=== PATIENT | female | born 1940 | race Hispanic/Latino ===

== ENCOUNTER 2017-04-29 17:30 | Inpatient (IN) | payer OTHER, MEDICAID ==
[~2017-04-29] VITALS: Ht 162.6 cm; Wt 108.0 kg
[~2017-04-29 17:30] MED LIST: ADALAT10 MG ORAL; ATORVASTATIN CA40 MG ORAL; BENAZEPRIL HCL20 MG ORAL; CARVEDILOL3.125 MG ORAL; CATAPRES0.1 MG ORAL; COLACE250 MG ORAL; COUMADIN5 MG ORAL; FLONASE1 SPRAYS NASAL; FLOVENT2 PUFFS INH; FUROSEMIDE20 M1 ORAL; FUROSEMIDE40 MG ORAL; GABAPENTIN300 MG ORAL; GLIPIZIDE5 MG ORAL; HYDRALAZINE HCL10 MG ORAL; ISOSORBIDE DINIT5 MG ORAL; LABETALOL HCL100 MG ORAL; LASIX40 MG ORAL; LEVOTHYROXINE100 MCG ORAL; NIFEDIPINE ER90 M3 ORAL; NIFEDIPINE10 MG ORAL; VESICARE5 MG ORAL; WARFARIN SODIUM1 MG ORAL; ZANTAC150 MG ORAL; ZAROXOLYN2.5 MG ORAL
[2017-04-29 17:34] VITALS: BP 154/85
[2017-04-29] MEDS ORDERED: Ipratropium 0.02% Inh Soln 2.5ml UD HHN ONE (17:45)
[2017-04-29] MEDS ORDERED: Albuterol ud Inhalation HHN ONE (17:45)
--- NOTE | 2017-04-29 18:20 | Emergency Room Report ---
History of Present Illness General Chief Complaint: Dyspnea/Respdistress Source: Patient, EMS Present Illness HPI 77-year-old female presents ED complaining of shortness of breath x1 day. Started this morning. Denies any chest pain. Denies any fevers or chills. Denies cough. Per EMS O2 was low on room air and was placed on nasal cannula with improvement. No other aggravating or relieving factors. Denies any other associated symptoms Allergies: Coded Allergies: No Known Allergies (Verified , 01/26/07) Patient History Past Medical History: DM, HTN Past Surgical History: none Pertinent Family History: none Social History: Denies: smoking, alcohol use, drug use Last Menstrual Period: Unk Now: No Immunizations: UTD Reviewed Nursing Documentation: PMH: Agreed, PSxH: Agreed Nursing Documentation-PMH Hx Hypertension: Yes Hx Diabetes: Yes Review of Systems All Other Systems: negative except mentioned in HPI Physical Exam Vital Signs Date Time Temp Pulse Resp B/P (MAP) Pulse Ox O2 Delivery O2 Flow Rate FiO2 04/29/17 17:24 97.7 77 19 140/80 100 Nasal Cannula 4.0 04/29/17 17:52 28 Sp02 EP Interpretation: reviewed, normal General Appearance: no apparent distress, alert, GCS 15, non-toxic Head: normocephalic, atraumatic Eyes: bilateral eye normal inspection, bilateral eye PERRL ENT: hearing grossly normal, normal pharynx, no angioedema, normal voice Neck: full range of motion, supple/symm/no masses Respiratory: chest non-tender, lungs clear, normal breath sounds, speaking full sentences Cardiovascular #1: regular rate, rhythm, no edema Cardiovascular #2: 2+ carotid (R), 2+ carotid (L), 2+ radial (R), 2+ radial (L) , 2+ dorsalis pedis (R), 2+ dorsalis pedis (L) Gastrointestinal: normal bowel sounds, non tender, soft, non-distended, no guarding, no rebound Rectal: deferred Genitourinary: normal inspection, no CVA tenderness Musculoskeletal: back normal, gait/station normal, normal range of motion, swelling - 1+ bilateral LEs Neurologic: alert, oriented x3, responsive, motor strength/tone normal, sensory intact, speech normal Psychiatric: judgement/insight normal, memory normal, mood/affect normal, no suicidal/homicidal ideation Reflexes: 3+ bicep (R), 3+ bicep (L), 3+ tricep (R), 3+ tricep (L), 3+ knee (R) , 3+ knee (L) Skin: normal color, no rash, warm/dry, well hydrated Lymphatic: no adenopathy Medical Decision Making Diagnostic Impression: Primary Impression: Dyspnea Qualified Codes: R06.00 - Dyspnea, unspecified Additional Impressions: CHF exacerbation Qualified Codes: I50.9 - Heart failure, unspecified ARF (acute renal failure) Qualified Codes: N17.9 - Acute kidney failure, unspecified Hyponatremia UTI (urinary tract infection) Qualified Codes: N39.0 - Urinary tract infection, site not specified ER Course Hospital Course 77-year-old female presents ED complaining of shortness of breath, leg swelling x2 weeks Differential diagnoses include: KS/unstable angina, contusion, muscle strain, PTX, rib fracture Clinical course Patient placed on stretcher. on cardiac exercise physiologist. After initial history and physical I ordered labs, EKG, chest x-ray, labs reviewed- no leukocytosis, hemoglobin/hematocrit stable, Na 119, BUN/Cr eleavted, lactic ok, trop negative, BNP > 20,000 Chest x-ray- CHF with congestion EKG - atrial fibrilation. no acute ischemic changes interpreted by me Patient mentating appropriately. No indication for hypertonic saline. Albert catheter placed. Given Lasix. Given antibiotics. Fluid restrictions Patient will be admitted to Dr. Darlene Sandoval. I feel this is a highly complex case requiring extensive working including EKG/Rhythm strip, Xray/CT/US, Blood/urine lab work, repeat exams while in ED, and administration of strong opiates/narcotics for pain control, admission to hospital or close patient follow up. Diagnosis - CHF exacerbation, dyspnea, ARF, UTI admitted to telemetry in serious condition Labs Test 04/29/17 18:00 04/29/17 20:00 White Blood Count 7.7 K/UL (4.8-10.8) Red Blood Count 3.17 M/UL (4.20-5.40) Hemoglobin 10.6 G/DL (12.0-16.0) Hematocrit 31.7 % (37.0-47.0) Mean Corpuscular Volume 100 FL (80-99) Mean Corpuscular Hemoglobin 33.5 PG (27.0-31.0) Mean Corpuscular Hemoglobin Concent 33.4 G/DL (32.0-36.0) Red Cell Distribution Width 13.7 % (11.6-14.8) Platelet Count 245 K/UL (150-450) Mean Platelet Volume 5.1 FL (6.5-10.1) Neutrophils (%) (Auto) % (45.0-75.0) Lymphocytes (%) (Auto) % (20.0-45.0) Monocytes (%) (Auto) % (1.0-10.0) Eosinophils (%) (Auto) % (0.0-3.0) Basophils (%) (Auto) % (0.0-2.0) Differential Total Cells Counted 100 Neutrophils % (Manual) 85 % (45-75) Lymphocytes % (Manual) 7 % (20-45) Monocytes % (Manual) 5 % (1-10) Eosinophils % (Manual) 3 % (0-3) Basophils % (Manual) 0 % (0-2) Band Neutrophils 0 % (0-8) Platelet Estimate Adequate Platelet Morphology Normal Hypochromasia 1+ Anisocytosis 1+ Sodium Level 119 MMOL/L (136-145) Potassium Level 5.1 MMOL/L (3.5-5.1) Chloride Level 82 MMOL/L (98-107) Carbon Dioxide Level 26 MMOL/L (21-32) Anion Gap 12 mmol/L (5-15) Blood Urea Nitrogen 48 mg/dL (7-18) Creatinine 6.4 MG/DL (0.55-1.30) Estimat Glomerular Filtration Rate mL/min (>60) Glucose Level 147 MG/DL (74-106) Lactic Acid Level 0.70 mmol/L (0.66-2.22) Calcium Level 9.1 MG/DL (8.5-10.1) Total Bilirubin 0.7 MG/DL (0.2-1.0) Aspartate Amino Transf (AST/SGOT) 32 U/L (15-37) Alanine Aminotransferase (ALT/SGPT) 20 U/L (12-78) Alkaline Phosphatase 92 U/L (46-116) Total Creatine Kinase 198 U/L (26-308) Creatine Kinase MB 4.2 NG/ML (0.0-3.6) Creatine Kinase MB Relative Index 2.1 Troponin I 0.035 ng/mL (0.000-0.056) Pro-B-Type Natriuretic Peptide 63993 pg/mL (0-125) Total Protein 6.9 G/DL (6.4-8.2) Albumin 2.7 G/DL (3.4-5.0) Globulin 4.2 g/dL Albumin/Globulin Ratio 0.6 (1.0-2.7) Urine Color Yellow Urine Appearance Slightly cloudy Urine pH 5 (4.5-8.0) Urine Specific [place] 1.010 (1.005-1.035) Urine Protein 3+ (NEGATIVE) Urine Glucose (UA) 2+ (NEGATIVE) Urine Ketones Negative (NEGATIVE) Urine Occult Blood 5+ (NEGATIVE) Urine Nitrite Negative (NEGATIVE) Urine Bilirubin Negative (NEGATIVE) Urine Urobilinogen Normal MG/DL (0.0-1.0) Urine Leukocyte Esterase 3+ (NEGATIVE) Urine RBC 5-10 /HPF (0 - 2) Urine WBC 20-30 /HPF (0 - 2) Urine Squamous Epithelial Cells Few /LPF (NONE/OCC) Urine Bacteria Moderate /HPF (NONE) Urine Yeast Moderate /HPF (NONE) EKG Diagnostic Results Rate: normal Rhythm: other - afib ST Segments: no acute changes ASA given to the pt in ED: No Rhythm Strip Diag. Results EP Interpretation: yes Rhythm: NSR, no PVC's, no ectopy Chest X-Ray Diagnostic Results Chest X-Ray Diagnostic Results : Chest X-Ray Ordered: Yes # of Views/Limited/Complete: 1 View Indication: Shortness of Breath EP Interpretation: Yes Interpretation: no pneumothorax, other - cardiomegaly. bilateral effusion Impression: Other - chf Electronically Signed by: Electronically signed by Polo Rawls MD Last Vital Signs Date Time Temp Pulse Resp B/P (MAP) Pulse Ox O2 Delivery O2 Flow Rate FiO2 04/29/17 17:52 81 16 98 Nasal Cannula 2.0 28 04/29/17 17:24 97.7 140/80 Status: improved Disposition: ADMITTED INPATIENT Condition: Serious POLO RAWLS M.D. Apr 29, 2017 18:20
[2017-04-29 18:26] LABS: HEMATOCRIT 31.7 % (37.0-47.0); HEMOGLOBIN 10.6 G/DL (12.0-16.0); MEAN CORPUSCULAR VOLUME 100 FL (80-99); PLATELET COUNT 245 K/UL (150-450); RED BLOOD COUNT 3.17 M/UL (4.20-5.40); RED CELL DISTRIBUTION WIDTH 13.7 % (11.6-14.8); WHITE BLOOD COUNT 7.7 K/UL (4.8-10.8)
[2017-04-29 18:58] LABS: ALANINE AMINOTRANSFERASE 20 U/L (12-78); ALBUMIN 2.7 G/DL (3.4-5.0); ALBUMIN/GLOBULIN RATIO 0.6 (1.0-2.7); ALKALINE PHOSPHATASE 92 U/L (46-116); ANION GAP 12 mmol/L (5-15); ASPARTATE AMINO TRANSFERASE 32 U/L (15-37); BILIRUBIN,TOTAL 0.7 MG/DL (0.2-1.0); BLOOD UREA NITROGEN 48 mg/dL (7-18); CALCIUM 9.1 MG/DL (8.5-10.1); CARBON DIOXIDE 26 MMOL/L (21-32); CHLORIDE 82 MMOL/L (98-107); CKMB 4.2 NG/ML (0.0-3.6); CREATINE KINASE 198 U/L (26-308); CREATININE 6.4 MG/DL (0.55-1.30); POTASSIUM 5.1 MMOL/L (3.5-5.1)
[2017-04-29 19:00] LABS: SODIUM 119 MMOL/L (136-145)
[2017-04-29 19:36] VITALS: BP 137/82
[2017-04-29 20:23] LABS: BILIRUBIN, URINE NEGATIVE (NEGATIVE); GLUCOSE, URINE (UA) 2+ (NEGATIVE); KETONES,URINE NEGATIVE (NEGATIVE); LEUKOCYTE ESTERASE ,URINE 3+ (NEGATIVE); NITRITE,URINE NEGATIVE (NEGATIVE); PH,URINE 5 (4.5-8.0); PROTEIN,URINE 3+ (NEGATIVE); UROBILINOGEN,URINE NORMAL MG/DL (0.0-1.0)
[2017-04-29 20:24] LABS: APPEARANCE,URINE SLIGHTLY CLOUDY; COLOR,URINE YELLOW
[2017-04-29 21:47] VITALS: BP 145/74
[2017-04-29] MEDS ORDERED: Sodium Polystyrene Sulfonate 15gm Powder ORAL ONE (22:00)
[2017-04-30] VITALS (8 sets, daily range): BP systolic 119–157; BP diastolic 62–111
[2017-04-30] MEDS ORDERED: Miralax 17gm pkt ORAL PRN (02:00)
[2017-04-30] MEDS: GlipiZIDE 5mg tab ORAL SCH ×2 (06:14→16:30)
[2017-04-30 07:16] LABS: APPEARANCE,URINE CLOUDY; BILIRUBIN, URINE NEGATIVE (NEGATIVE); COLOR,URINE PALE YELLOW; GLUCOSE, URINE (UA) 2+ (NEGATIVE); KETONES,URINE NEGATIVE (NEGATIVE); LEUKOCYTE ESTERASE ,URINE 3+ (NEGATIVE); NITRITE,URINE NEGATIVE (NEGATIVE); PH,URINE 5 (4.5-8.0); PROTEIN,URINE 3+ (NEGATIVE); UROBILINOGEN,URINE NORMAL MG/DL (0.0-1.0)
[2017-04-30 07:46] LABS: HEMATOCRIT 31.7 % (37.0-47.0); HEMOGLOBIN 10.6 G/DL (12.0-16.0); MEAN CORPUSCULAR VOLUME 102 FL (80-99); PLATELET COUNT 254 K/UL (150-450); RED BLOOD COUNT 3.13 M/UL (4.20-5.40); WHITE BLOOD COUNT 8.2 K/UL (4.8-10.8)
[2017-04-30 08:25] LABS: CHOLESTEROL 197 MG/DL (< 200); HDL CHOLESTEROL 69 MG/DL (40-60); TRIGLYCERIDES 69 MG/DL (30-150)
[2017-04-30 08:27] LABS: PHOSPHORUS 6.3 MG/DL (2.5-4.9)
[2017-04-30 08:31] LABS: ALANINE AMINOTRANSFERASE 26 U/L (12-78); ALBUMIN 2.6 G/DL (3.4-5.0); ALBUMIN/GLOBULIN RATIO 0.7 (1.0-2.7); ALKALINE PHOSPHATASE 91 U/L (46-116); ANION GAP 12 mmol/L (5-15); ASPARTATE AMINO TRANSFERASE 23 U/L (15-37); BILIRUBIN,TOTAL 0.7 MG/DL (0.2-1.0); BLOOD UREA NITROGEN 49 mg/dL (7-18); CALCIUM 8.8 MG/DL (8.5-10.1); CARBON DIOXIDE 25 MMOL/L (21-32); CHLORIDE 83 MMOL/L (98-107); CREATININE 6.5 MG/DL (0.55-1.30); POTASSIUM 4.7 MMOL/L (3.5-5.1); SODIUM 120 MMOL/L (136-145)
[2017-04-30] MEDS ORDERED: Aspirin Baby 81mg ORAL SCH (09:00)
[2017-04-30] MEDS: Heparin 5000 units/ml inj SUBQ SCH ×2 (09:00→21:00)
[2017-04-30] MEDS: HydrALAZINE 25mg tab ORAL SCH ×3 (09:33→17:02)
[2017-04-30] MEDS: Furosemide 80mg tab ORAL SCH ×2 (09:33→13:35)
[2017-04-30] MEDS: Carvedilol 6.25mg Tab ORAL SCH ×2 (09:33→21:00)
--- NOTE | 2017-04-30 09:43 | Consultation ---
DATE OF CONSULTATION: 04/29/2017 CARDIOLOGY CONSULTATION CONSULTING PHYSICIAN: Todd Mckeon M.D. ATTENDING/REQUESTING PHYSICIAN: Manuel Colon M.D. REASON FOR CONSULTATION: Congestive heart failure in the setting of severe electrolyte disturbances and acute renal failure. HISTORY OF PRESENT ILLNESS: This 77-year-old female has history of hypertensive heart disease and diastolic dysfunction. She presented to the emergency room with 1-day history of shortness of breath. She denied any associated symptoms including chest pain, fevers, chills, or cough. She was notably hypoxic on arrival and improved on nasal cannula oxygen. She has not had any leg swelling or cramps. The patient was hospitalized here in 10/2016, with orthostatic syncope, hypotension, and polypharmacy. Her medication regimen was adjusted at that time to decrease the risk of bradyarrhythmias that were associated with her presenting symptoms at that time. PAST MEDICAL HISTORY: Hypertension, type 2 diabetes mellitus, osteoarthritis, degenerative disk disease, ESRD on peritoneal dialysis, severe hypertriglyceridemia, and hyperlipidemia. ALLERGIES: None known. FAMILY HISTORY: Noncontributory. SOCIAL HISTORY: Negative for alcohol, or substance abuse. The patient is a smoker. REVIEW OF SYSTEMS: She had an echocardiogram here in 10/2016, ejection fraction was normal. There was diastolic relaxation abnormality. There was no evidence of significant valvular disease. Otherwise, all systems negative. PHYSICAL EXAMINATION: VITAL SIGNS: Blood pressure 148/80, pulse 77, respirations 19, temperature 97.7. HEENT: Normocephalic, atraumatic. Conjunctivae pink. Oropharynx clear. Mucous membranes moist. NECK: Supple. Jugular venous pressure elevated. LUNGS: With diminished breath sounds. Scattered rales. CARDIAC: Regular rhythm and rate. Normal S1, S2 with a fourth heart sound. ABDOMEN: Obese, soft, nontender. +PD cath. EXTREMITIES: With dependent edema. LABORATORY AND DIAGNOSTIC DATA: EKG reveals atrial fibrillation with nonspecific ST changes. Chest x-ray reveals pulmonary venous congestion. Laboratories, sodium 119, lactic acid normal, potassium 5.1, chloride 82, bicarbonate 26, BUN 48, creatinine 6.4, glucose 147. Pro-natriuretic peptide 23,000. Albumin 2.7. White count 7.7, hemoglobin 10.6. IMPRESSION: 1. Acute and chronic diastolic congestive heart failure. 2. Acute on chronic renal failure. 3. Severe hyponatremia. 4. Hypochloremia. 5. Metabolic encephalopathy. 6. Paroxysmal atrial fibrillation with ventricular rate controlled. PLAN: 1. Diuresis efforts and fluid restriction. 2. Monitor electrolytes closely with PD. 3. DVT and stress ulcer prophylaxis. 4. Consider cardioembolic prophylaxis with apixaban terminal manager. 5. Close monitoring of clinical parameters with daily adjustments to plan of care will be required in this clinical settings. Todd Mckeon M.D. DR: SANTANA JOB#: [id number] CC: YENY
--- NOTE | 2017-04-30 10:14 | Diagnostic Imaging Report ---
Indication: Dyspnea Technique: XRAY Chest 1v Comparison: 07/28/2014 Findings: Patient is rotated to the left. Heart is enlarged. Atherosclerotic calcifications noted in the aorta. There is bilateral interstitial opacification/edema. There patchy perihilar and right medial basilar airspace opacities. Question trace left pleural effusion. No definite pneumothorax. No acute bony abnormality. Impression: Cardiomegaly with bilateral interstitial and patchy airspace opacities thought to be related to CHF/pulmonary edema. Superimposed pneumonia is not entirely excluded. Clinical correlation and follow-up exam recommended. Study obtained in the emergency department. Patient admitted to the hospital at time of dictation of final report.
--- NOTE | 2017-04-30 18:33 | History and Physical Report ---
DATE OF ADMISSION: 04/29/2017 CHIEF COMPLAINT AND REASON FOR HOSPITALIZATION: Shortness of breath, weakness, and abnormal labs. HISTORY OF PRESENT ILLNESS: The patient is a 77-year-old lady with known history of hypertension, diabetes, chronic kidney disease, and CHF. She presents with increasing shortness of breath and chest x-ray evidence of CHF. She also has a sodium of 119, BUN 48, creatinine 6.4. In 2015, her creatinine was about 2.5. There is a history of obesity, hypothyroidism, and hyperlipidemia. MEDICATIONS: Medications per list that she brings includes amlodipine and benazepril 10/40 one daily, labetalol 200 mg one and a half pills b.i.d., amiodarone 200 mg daily, glipizide 10 mg b.i.d., [place]-3 two tablets b.i.d., atorvastatin 80 mg daily, levothyroxine 100 mcg daily, furosemide 80 mg b.i.d., warfarin 5 mg daily, meloxicam 15 mg daily, Amitiza 8 mcg three times a day, Venlafaxine 37.5 mg one and a half tablets at the nighttime, tramadol 50 mg q. 4 h. p.r.n., metoclopramide 10 mg t.i.d. p.r.n. for nausea, amitriptyline 10 mg daily, lorazepam half a pill three times a day, mirtazapine 7.5 mg at bedtime, Symbicort inhaler, Flonase inhaler, ProAir inhaler. She also takes Centrum Silver, Super B-Complex, glucosamine, and calcium. HABITS: She has a history of cigarette smoking. Denies any alcohol or drugs. SOCIAL HISTORY: She lives with her . SYSTEM REVIEW: HEAD, EYES, EARS, NOSE, AND THROAT: Vision and hearing is good. ENDOCRINE: History of obesity, diabetes, and hypothyroidism. PULMONARY: History of shortness of breath as above. Former cigarette smoker. CARDIAC: History of CHF. Prior chart states she has coronary artery disease, but she is not aware of any chest pain or history of VT. GASTROINTESTINAL: Denies nausea or vomiting. GENITOURINARY: Denies dysuria or hematuria. NEUROLOGIC: Denies CVA. MUSCULOSKELETAL: History of chronic joint pain. PHYSICAL EXAMINATION: GENERAL: The patient is morbidly obese lady, lying in bed, weak, but in no distress. VITAL SIGNS: BMI 40.9, temperature 97, pulse 73, respirations 25, and blood pressure 119/88. HEAD, EYES, EARS, NOSE, AND THROAT: Sclerae are nonicteric. Ocular motions intact in all directions. Oral mucosa moist. NECK: No adenopathy. LUNGS: Few crackles at the bases. Shallow breath sounds. HEART: Regular rhythm. I hear no murmur. ABDOMEN: Very obese. I am unable to feel liver or spleen. EXTREMITIES: Show 1+ edema. NEUROLOGIC: She is alert and responsive. Cranial nerves are intact. No focal findings. IMPRESSION: 1. Congestive heart failure, acute on chronic. Echo pending. 2. Chronic kidney disease likely stage 5. 3. Hyponatremia likely due to free water and medications. 4. Anemia of chronic kidney disease. 5. Diabetes. 6. History of hypertension. 7. Morbid obesity. PLAN: The patient will be put on fluid restriction, furosemide at high doses for diuresis. Monitor her renal function, cardiac status closely, she is a high-risk patient. She may need to have dialysis initiated and anti-ischemic work up. Cardiology will see the patient. Cameron Vallejo M.D. : EMMA/JOSUE JOB#: [id number] CC:
--- NOTE | 2017-05-01 02:45 | Progress Note ---
DATE: 04/30/2017 CARDIOLOGY PROGRESS NOTE SUBJECTIVE: The patient has less congestion, but is still short of breath. No chest pain. OBJECTIVE: VITAL SIGNS: Blood pressure 157/83, pulse 74, and respirations 20. LUNGS: With diminished breath sounds. Few rales. HEART: Irregularly irregular rhythm. Normal S1 and S2. ABDOMEN: Soft, obese. EXTREMITIES: With dependent edema. DIAGNOSTIC AND LABORATORY DATA: Chest x-ray on admission revealed bilateral interstitial and airspace disease. Troponin 0.034. TSH 11. Sodium 120, potassium 4.7, bicarbonate 25, BUN 49, and creatinine 6.5. IMPRESSION: 1. Acute on chronic diastolic congestive heart failure. 2. Hypothyroidism. 3. Hyponatremia. 4. End-stage renal disease. 5. Anemia of chronic kidney disease. 6. Paroxysmal atrial fibrillation. PLAN: 1. Peritoneal dialysis to be arranged. If not possible here, the patient may be transferred. 2. Diuresis efforts in the interim with IV furosemide. 3. Anti-failure regimen titration based on clinical parameters. 4. Thyroid replacement, long-term. Todd Mckeon M.D. DR: CHRISTIAN JOB#: [id number] CC:
--- NOTE | 2017-05-01 12:59 | Discharge Summary ---
Discharge Summary Hospital Course Date of Admission Apr 29, 2017 at 21:44 Date of Discharge Apr 30, 2017 at 21:12 Admitting Diagnosis DYSPNEA HPI Carlota Mcclure is a 77 year old female who was admitted on Apr 29, 2017 at 21:44 for Dyspnea Hospital Course [id number] Discharge Discharge Disposition Patient left AMA Discharge Diagnoses: Rose Valderrama NP May 01, 2017 12:59
--- NOTE | 2017-05-01 23:01 | Discharge Summary ---
DATE OF ADMISSION: 04/29/2017 DATE OF DISCHARGE: 04/30/2017 PERTINENT HISTORY: The patient has end-stage renal disease, on peritoneal dialysis presents with shortness of breath and weakness. There is a history of hypertension and diabetes. PERTINENT PHYSICAL FINDINGS: GENERAL: She is obese, but in no acute distress. LUNGS: Few crackles at the bases and shallow breath sounds. HEART: Regular rhythm. ABDOMEN: Obese. There is a peritoneal catheter in place. EXTREMITIES: Show 1+ edema. COURSE IN THE HOSPITAL: The patient presented with CHF, but was not in severe distress. She is found to have end-stage renal disease and peritoneal dialysis is not available in this hospital. We will try to arrange transfer to her primary supervisor stripping in [facility] and vp [employer] social media and crm involved. She had hyponatremia and fluid restriction was done. Diabetes is managed. The patient decided to leave the hospital against medical advice and left in no distress. FINAL DIAGNOSES: 1. Congestive heart failure, acute on chronic. 2. End-stage renal disease. 3. Hyponatremia. 4. Anemia of chronic disease. 5. Diabetes. 6. Hypertension. 7. Morbid obesity. 8. Leaving hospital against medical advice. Cameron Vallejo M.D. DR: JEANINE JOB#: [id number] CC:
--- NOTE | 2017-05-02 02:45 | Discharge Summary 2 SIG ---
DATE OF ADMISSION: 04/29/2017 DATE OF DISCHARGE: 04/30/2017 ATTENDING PHYSICIAN: Manuel Colon M.D. CONSULTANTS: 1. Todd Mckeon M.D. 2. Cameron Vallejo M.D. BRIEF HOSPITAL COURSE: The patient is a 77-year-old female with history of hypertension, diabetes mellitus, chronic kidney disease and CHF. She presented with increasing shortness of breath with chest x-ray showing evidence of CHF. ProBNP was 23,355. BUN 48 and creatinine 6.4. Influenza screens were negative. She was admitted for acute congestive heart failure and chronic kidney disease likely stage 5. She had hyponatremia likely due to free water and medications. She was placed on fluid restriction and furosemide at high doses for diuresis. She was seen by Dr. Mckeon. The patient has paroxysmal atrial fibrillation with ventricular rate controlled. Troponin was 0.034 and TSH was 11. The patient would need to be started on dialysis. Full treatment was not carried out as she signed out against medical advice. FINAL DIAGNOSES: 1. Acute on chronic diastolic congestive heart failure. 2. Chronic kidney disease likely stage 5. 3. Hyponatremia. 4. Anemia of chronic kidney disease. 5. Diabetes mellitus. 6. Morbid obesity. 7. Hypertension. 8. Paroxysmal atrial fibrillation. 9. Hypothyroidism. 10. Noncompliance as the patient signed out against medical advice. DISPOSITION: The patient left AMA. Cameron Vallejo M.D. I have been assigned to dictate discharge summary on this account and I was not involved in the patient's management. Rose Valderrama N.P. DR: MORELIA JOB#: [id number] CC: YENY
--- NOTE | 2017-05-02 15:05 | Cardiology Report ---
APPROVED REPORT EKG Measurement Heart [id number] Atrial fibrillation with a competing junctional pacemaker Abnormal ECG
--- NOTE | 2017-05-03 15:38 | Cardiology Report ---
APPROVED REPORT EKG Measurement Heart [id number] Atrial fibrillation Rightward axis Prolonged QT Abnormal ECG
== END 2017-04-30 21:12 | disposition left against medical advice (07) | DRG 291 ==
LOC: EDBD 17:30 → EMR 18:58 → 2E 21:44 → EDBEDREQ 04-30 01:33 → 2E 04-30 05:38
DX: I13.2 Hypertensive heart and chronic kidney disease with heart failure and with stage 5 chronic kidney disease, or end stage renal disease (principal); I50.33 Acute on chronic diastolic (congestive) heart failure; G93.41 Metabolic encephalopathy; N17.9 Acute kidney failure, unspecified; E11.22 Type 2 diabetes mellitus with diabetic chronic kidney disease; E87.1 Hypo-osmolality and hyponatremia; E11.9 Type 2 diabetes mellitus without complications; D63.8 Anemia in other chronic diseases classified elsewhere; N18.6 End stage renal disease; N39.0 Urinary tract infection, site not specified; N18.5 Chronic kidney disease, stage 5; R06.00 Dyspnea, unspecified; E87.8 Other disorders of electrolyte and fluid balance, not elsewhere classified; E66.01 Morbid (severe) obesity due to excess calories; E03.9 Hypothyroidism, unspecified; Z87.891 Personal history of nicotine dependence; E78.5 Hyperlipidemia, unspecified; I48.0 Paroxysmal atrial fibrillation; Z91.19 Patient's noncompliance with other medical treatment and regimen
CPT/HCPCS: 36415; 71045; 80053; 80061; 81003; 82550; 82553; 82962; 83605; 83880; 84100; 84439; 84443; 84481; 84484; 84550; 85007; 85025; 86710; 87040; 87086; 93005; 94640; 94664; 99285